=== PATIENT | female | born 1985 | race Two or more races ===

== ENCOUNTER 2024-06-09 16:54 | Emergency (ER) | payer SELFPAY ==
[2024-06-09 16:56] VITALS: BMI 24.7
[2024-06-09 17:03] VITALS: BP 111/72; PULSE 72; RESP 16; TEMP 36.7; O2SAT 100
--- NOTE | 2024-06-09 17:12 | XR_ITS ---
Examination: Shoulder,right, 3 views Technique: Shoulder AP internal rotation, AP external rotation, Y view shoulder, 3 views Exam date and time :June 09, 2024 at 1745 hrs. Indications: Injury to the shoulder today, shoulder pain Findings: Acute comminuted fractures of the scapula, the largest fracture component below the bony glenoid fossa Humerus clavicle appear intact Impression: Acute comminuted fractures of the body of the scapula without major displacement
--- NOTE | 2024-06-09 17:12 | PD.EDRME ---
Rapid Medical Screening Exam RME Arrival date/time: 06/09/24 16:54 Chief Complaint: Extremity Injury, Upper Time Seen by Provider: 06/09/24 16:59 Vital signs: Vital Signs Temperature 98.1 F 06/09/24 17:03 Pulse Rate 72 06/09/24 17:03 Respiratory Rate 16 06/09/24 17:03 Blood Pressure 111/72 06/09/24 17:03 Pulse Oximetry (%) 100 06/09/24 17:03 Oxygen Delivery Method Room Air 06/09/24 17:03 RME Narrative: Right shoulder pain from trip and fall this afternoon. 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
[2024-06-09] MEDS: HYDROcodone/APAP 7.5/325 TABLET 1 TAB PO (17:26)
[2024-06-09] MEDS: IBUPROFEN TAB 600 MG TABLET PO (17:26)
--- NOTE | 2024-06-09 20:10 | EDNOTE_ITS ---
<Statement entered by Kitty Ferro MD - 06/20/24 17:37> As co-signing physician, I was present and available for consult prn. I concur with the plan and care as documented by the midlevel provider. Upper Extremity Injury RME/HPI General Chief Complaint: Extremity Injury, Upper Stated Complaint: INJURY TO LEFT SHOULDER S/P TRIP/FALL Time Seen by Provider: 06/09/24 16:59 Source: patient Arrival date/time: 06/09/24 16:54 38-year-old female presents emergency department complaining of right shoulder pain after accidental fall with no LOC that occurred today. Mode of arrival: ambulatory Limitations: physical limitation RME / HPI RME / HPI narrative: Right shoulder pain from trip and fall this afternoon. 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 Related Data Previous Rx's ?Medication ?Instructions ?Recorded ibuprofen 600 mg tablet 600 mg PO Q8H PRN pain #20 tabs 06/09/24 Allergies Allergy/AdvReac Type Severity Reaction Status Date / Time No Known Allergies Allergy Verified 06/09/24 16:58 Review of Systems Review of Systems Systems Reviewed: All systems reviewed, normal except as documented Constitutional Constitutional: Reports system reviewed and no additional complaints, except as documented, Denies body ache(s), Denies chills and Denies fever(s) Eyes Eyes: Reports system reviewed and no additional complaints, except as documented and Denies change in vision ENT Ears, Nose, Mouth, and Throat: Reports system reviewed and no additional complaints, except as documented, Denies disequilibrium, Denies dizziness, Denies sore throat and Denies vertigo Cardiovascular Cardiovascular: Reports system reviewed and no additional complaints, except as documented, Denies chest pain and Denies dyspnea Respiratory Respiratory: Reports system reviewed and no additional complaints, except as documented, Denies chest congestion, Denies cough and Denies dyspnea Gastrointestinal Gastrointestinal: Reports system reviewed and no additional complaints, except as documented, Denies abdominal pain, Denies nausea and Denies vomiting Musculoskeletal Musculoskeletal: Reports system reviewed and no additional complaints, except as documented, Denies abnormal gait and Reports arthralgias Integumentary/Breasts Skin/Breast: Reports system reviewed and no additional complaints, except as documented, Denies erythema, Denies rash and Denies wounds Neurologic Neurologic: Reports system reviewed and no additional complaints, except as documented, Denies abnormal gait, Denies disequilibrium, Denies dizziness and Denies vertigo Past Medical History Social History SMOKING STATUS: Never smoker ED Exam General Limitations: Present physical limitation General appearance: Present alert and in no apparent distress Head Head exam: Present atraumatic Eye Eye exam: Present normal appearance, PERRL and EOMI ENT ENT exam: Present normal exam, normal oropharynx and mucous membranes moist Neck Neck exam: Present normal inspection, full ROM and trachea midline Chest Chest inspection: Present normal inspection and symmetric chest wall rise Respiratory Respiratory exam: Present normal lung sounds bilaterally Cardiovascular Cardiovascular exam: Present regular rate, normal rhythm and normal heart sounds Abdominal Exam Abdominal exam: Present soft and normal bowel sounds Extremities Exam Extremities exam: Present normal inspection and full ROM Expanded Upper Extremity Exam Shoulder exam: Present full ROM (Limited active range of motion right shoulder) and tenderness (Right shoulder) Vascular exam: Normal capillary refill Back Exam Back exam: Present normal inspection and full ROM Neurological Exam Neurological exam: Present alert, oriented X3 and CN II-XII intact Psychiatric Psychiatric exam: Present normal affect and normal mood Skin Skin exam: Present warm, dry, intact and normal color Course Quality Measures none Orders Category Date Time Status sling [Splint / Immobilizer] STAT Care 06/09/24 20:04 Completed XR shoulder RT min 2V Stat Exams 06/09/24 17:12 Completed HYDROcodone*/APAP 7.5/325 [[place] 7.5/325] Med 06/09/24 17:12 Discontinued 1 tab PO X1 ONE Ibuprofen Tab [Motrin Tab] Med 06/09/24 17:12 Discontinued 600 mg PO X1 ONE Ketorolac Inj [Toradol Inj] Med 06/09/24 20:18 Discontinued 30 mg IM X1 ONE Vital Signs Vital signs: Vital Signs Temperature 98.1 F 06/09/24 17:03 Pulse Rate 72 06/09/24 17:03 Respiratory Rate 16 06/09/24 17:03 Blood Pressure 111/72 06/09/24 17:03 Pulse Oximetry (%) 100 06/09/24 17:03 Oxygen Delivery Method Room Air 06/09/24 17:03 100% room air within normal limits Procedures -ED Splint Fabrication: Pre-Fabricated Type: Other (Sling) Reason for Splint: Optimal Positioning and Pain Management Circulation Distal to Splint: Yes Movement Distal to Splint: Yes Senation Distal to Splint: Yes Tolerance: Tolerates Well Extremity Injury MDM Narrative MDM Narrative:: 38-year-old female presents emergency department complaining of right shoulder pain after accidental fall with no LOC that occurred today. X-rays right shoulder findings: Acute comminuted fractures of the body of the scapula without major displacement. Patient does have limited active range of motion to right shoulder and is neurovascularly intact. Dr Pop consulted and recommended sling and follow-up with primary care provider and request referral to see risk management specialist. Patient placed in sling tolerated well prescribed pain medication and instructed to follow-up with primary care provider and request referral to risk management specialist and return to emergency department for any worsening symptoms or as needed. Patient data External records reviewed:: [facility] previous records Clinical information provided by:: patient and family Social determinants that could affect healthcare access:: none Patient has the following chronic illnesses:: None How is presenting disease/condition affected by chronic disease/condition?: no chronic disease Evaluation data The following diagnostics were reviewed and interpreted by me:: radiology exam(s) Lab and/or radiology exams considered but not ordered:: Ordered Interpretation Summary: Interpreted by me Medications / Prescriptions Medications or Prescriptions considered but not ordered:: Ordered Medication administrations:: Medication Administration History Discontinued Medications Hydrocodone Bitart/Acetaminophen (Hydrocodone/Apap 7.5/325 Tablet) 1 tab PO X1 ONE Stop: 06/09/24 17:13 Last Admin: 06/09/24 17:26 Dose: 1 tab Documented By: Ibuprofen (Ibuprofen Tab 600 Mg Tablet) 600 mg PO X1 ONE Stop: 06/09/24 17:13 Last Admin: 06/09/24 17:26 Dose: 600 mg Documented By: Ketorolac Tromethamine (Ketorolac Inj 60 Mg/2 Ml Vial) 30 mg IM X1 ONE Stop: 06/09/24 20:19 Last Admin: 06/09/24 20:27 Dose: 30 mg Documented By: Given Consultations Consultation(s) initiated? (list below): No Diagnosis Upper Extremity Injury Differential Diagnosis: dislocation of shoulder and fracture of clavicle Most likely diagnosis given after review of the tests above:: Scapula fracture Admission Indicated Admission indicated?: not indicated Admission Request Was there a request for admission?: No Disposition Plan Disposition Plan: Discharge Discharge Attestation Discharge Attestation: The patient and all family members were given an opportunity to ask questions and understood the discharge instructions. Discharge instructions specifically effects, indications for sooner follow up or return to the emergency department, and the expected course of current diagnosis. Patient condition: Stable Discharge Plan Plan Patient Disposition: HOME (Self Care) Disposition Comment: Stable Prescriptions/Referrals Prescriptions/Med Rec: New ibuprofen 600 mg tablet 600 mg PO Q8H PRN (Reason: pain) Qty: 20 0RF Referrals: No Primary/Family,Physician [Primary Care Provider] - In 1 week Problem List Clinical Impression: Fracture of scapula Patient/Caregiver Discharge Instructions Education Materials: ED Fracture, Shoulder Additional Instructions: Take medication as needed for pain. Sling has been provided. Follow-up with primary care provider and request referral to risk management specialist. Return to emergency department for any worsening symptoms or as needed. Print Language: Kinyarwanda Stand Alone Forms: Jackelyn Award Info., Patient Portal Info Letter PA/[employer]TELLIGENCE [employer]PER[employer] Supervising Physician PA/[employer]PER[employer] Supervising Physician: Dr. Ferro
[2024-06-09] MEDS: KETOROLAC INJ 60 MG/2 ML VIAL 30 MG IM (20:27)
== END 2024-06-09 20:34 | disposition home or self-care (01) ==
PROVIDERS: Emergency Provider Emergency Medicine
DX: S42.114A Nondisplaced fracture of body of scapula, right shoulder, initial encounter for closed fracture (principal); W01.0XXA Fall on same level from slipping, tripping and stumbling without subsequent striking against object, initial encounter
CPT/HCPCS: 73030; 96372; 99283; A4565; J1885; A9270

== ENCOUNTER → 2024-07-05 | Outpatient (CLI) | payer SELFPAY ==
--- NOTE | 2024-07-05 17:00 | XR_ITS ---
Examination: CT right shoulder, without contrast. 2-D sagittal reconstructions. 2-D coronal reconstructions. 3-D reconstructions. Date and time of exam:July 05, 2024 1731 hrs. Indications: Patient fell June 09, 2024 with injury to the right shoulder, fracture scapula CTDI: vol (mGy):15.5 DLP: (mGycm):356 Technique: Multiple 1.25 mm axial sections of the right shoulder have been obtained. 2-D sagittal and coronal reconstructions have been obtained. 3-D reconstructions have been obtained. Low dose protocols were performed. One or more of the following dose reduction techniques were used; automated exposure control, adjustment of the mA and/or KV according to patient size, use of iterative reconstruction technique. Findings: Acute fractures body and spine of the right scapula with mild offset No disruption of the bony glenoid fossa of the scapula Head is intact with no humeral head dislocation Clavicle intact No acute rib fractures The patient's right breast implant appears intact Impression: Acute fractures of body of the scapula, comminuted, without significant displacement Bony glenoid fossa of the scapula, humeral head and neck and clavicle appear intact No shoulder dislocation
[2024-07-05 17:30] LABS: HCG Qualitative,Urine Negative
== END | disposition home or self-care (01) ==
PROVIDERS: Referring Provider Nurse Practitioner Family; Visit Provider Nurse Practitioner Family
DX: S42.111A Displaced fracture of body of scapula, right shoulder, initial encounter for closed fracture (principal); W19.XXXA Unspecified fall, initial encounter; M25.811 Other specified joint disorders, right shoulder; Z32.00 Encounter for pregnancy test, result unknown
CPT/HCPCS: 73200; 81025

== ENCOUNTER 2024-08-23 10:30 | Outpatient (RCR) | payer SELFPAY ==
--- NOTE | 2024-07-31 09:12 | PTNOTE_ITS ---
PT OP Initial Eval Patient Information Outpatient Physical Therapy Treatment Date: 07/31/24 Visit Reasons: Fracture of Right body Medical Diagnosis: S42.111A Treatment Dx #1: R shoulder pain Treatment Dx #2: Dec R shoulder ROM Start of Care: 07/31/24 Date of Onset: 06/09/24 Smoking Status Smoking Status: Never smoker Initial Assessment Subjective: Pt is 38 yr old greenlandic speaking female s/p fall and closed R scapula FX in May. She feels the shoulder is loose, unstable and she has pain lifting the UE and is unable to reach OH. This limits HH chores, reaching, and lifting. She points to the anterior shoulder as site of pain. PMH: none reported Imaging: CT in EMR Pt goal: to reach up and have strength without pain of R shoulder Objective: R shoulder AROM: PROM: ? FF: 55 deg 110 deg ? Abd: 45 deg 100 deg ? ER: 65 deg ? HBB: to R glute with pain ? Strength: 3-/5 in all planes ? PROM: end-range pain with myofascial tightness Assessment: Pt presents with decreased R shoulder AROM and strength consistent with R scapula FX and decreased RC activation. Pt requires skilled therapy to meet goals and has fair rehab potential depending on if she injured the RC. Short Term and Retirement Goals 1. Ind with HEP ? 2. Improved AROM of R shoulder to at least 135 deg FF, 125 deg abduction and 90 deg ? ER ? 3. Improved HBB ROM to L3 ? 4. Pt will reach OH x10 with <=4/10 pain Treatment Plan 1. Manual therapy ? 2. Therex ?3. Modalities as indicated, moist heat pack, ice, electrical stimulation Frequency and Duration: 2x a week for 12 weeks Certification Dates: 07/31/24 to 11/27/24 Procedure Charges OP PT Eval Mod Complex 30 minutes: Yes
--- NOTE | 2024-08-06 13:30 | PTNOTE_ITS ---
PT Outpatient Daily Note OP Daily Note Outpatient Physical Therapy Treatment Date: 08/06/24 Visit Reasons: Fracture of Right body Subjective: Doing HEP with octavio and [place] ball Objective: See f/S for therex Assessment: Much improved AAROM of R shoulder into FF and abduction today with pain limiting end-range Plan: Continue per POC Length of Time (minutes) of Treatment: 30 Minutes Procedure Charges Therapeutic Exercise 30 minutes: Yes
--- NOTE | 2024-08-08 11:58 | PT.ODAYNRPT ---
PT Outpatient Daily Note OP Daily Note Outpatient Physical Therapy Treatment Date: 08/08/24 Visit Reasons: Fracture of Right body Subjective: Doing HEP with better ROM of R shoulder Objective: See f/S for therex P x5' Assessment: Much improved AAROM of R shoulder into FF and abduction today with pain limiting end-range and pt can put hand behind head. Plan: Continue per POC Length of Time (minutes) of Treatment: 30 Minutes Procedure Charges Therapeutic Exercise 30 minutes: Yes
--- NOTE | 2024-08-14 10:12 | PT.ODAYNRPT ---
PT Outpatient Daily Note OP Daily Note Outpatient Physical Therapy Treatment Date: 08/14/24 Visit Reasons: Fracture of Right body Subjective: Doing HEP with better ROM of R shoulder Objective: See f/S for therex MT: PROM into FF, abd and ER x5' Assessment: Much improved AAROM of R shoulder into FF and abduction today with pain limiting end-range and pt can put hand behind head. Plan: Continue per POC Length of Time (minutes) of Treatment: 30 Minutes Procedure Charges Therapeutic Exercise 30 minutes: Yes
--- NOTE | 2024-08-21 10:49 | PT.ODAYNRPT ---
PT Outpatient Daily Note OP Daily Note Outpatient Physical Therapy Treatment Date: 08/21/24 Visit Reasons: Fracture of Right body Subjective: No new complaints or concerns to report. Objective: Please see flow sheet for ther ex list. Assessment: Interventions completed with minimal pain, interventions given alternating sitting and standing. Plan: Continue with POc. Length of Time (minutes) of Treatment: 30 Minutes Procedure Charges Therapeutic Exercise 30 minutes: Yes
--- NOTE | 2024-08-21 16:27 | PT.ODAYNRPT ---
PT Outpatient Daily Note OP Daily Note Outpatient Physical Therapy Treatment Date: 08/21/24 Visit Reasons: Fracture of Right body Subjective: Doing HEP with better ROM of R shoulder Objective: See f/S for therex MT: PROM into FF, abd and ER x3' Assessment: Much improved AAROM of R shoulder into FF and abduction today with pain limiting end-range and pt can put hand behind head. Plan: Continue per POC Length of Time (minutes) of Treatment: 30 Minutes Procedure Charges Therapeutic Exercise 30 minutes: Yes
--- NOTE | 2024-08-23 11:21 | PT.ODAYNRPT ---
PT Outpatient Daily Note OP Daily Note Outpatient Physical Therapy Treatment Date: 08/23/24 Visit Reasons: Fracture of Right body Subjective: Pt reports shoulder is stiff but overall making progress. Objective: Please see flow sheet for ther ex list. Assessment: Pt instructed on ER door stretch exercise, pt able to replicate with good technique and encouraged to perform within tolerable range. Plan: Continue with pOC. Length of Time (minutes) of Treatment: 30 Minutes Procedure Charges Therapeutic Exercise 30 minutes: Yes
== END 2024-08-24 23:59 | disposition home or self-care (01) ==
LOC: CPTX 10:30
PROVIDERS: PCP Orthopaedic Surgery; Referring Provider Orthopaedic Surgery; Visit Provider Orthopaedic Surgery
DX: M25.511 Pain in right shoulder (principal); S42.111D Displaced fracture of body of scapula, right shoulder, subsequent encounter for fracture with routine healing; W19.XXXD Unspecified fall, subsequent encounter
CPT/HCPCS: 97110; 97162

== ENCOUNTER 2024-08-30 09:30 | Outpatient (RCR) | payer SELFPAY ==
--- NOTE | 2024-08-27 11:41 | PTNOTE_ITS ---
PT Outpatient Daily Note OP Daily Note Outpatient Physical Therapy Treatment Date: 08/27/24 Visit Reasons: fracture right side Subjective: Doing HEP with better ROM of R shoulder but it's still stiff Objective: See f/S for therex MT: PROM into FF, abd and ER x5' Assessment: Improved PROM of R shoulder into FF and abduction today with pain limiting end- range and pt can put hand behind head. Plan: Continue per POC Length of Time (minutes) of Treatment: 30 Minutes Procedure Charges Therapeutic Exercise 30 minutes: Yes
--- NOTE | 2024-08-30 11:03 | PT.ODAYNRPT ---
PT Outpatient Daily Note OP Daily Note Outpatient Physical Therapy Treatment Date: 08/30/24 Visit Reasons: fracture right side Subjective: Doing HEP with better ROM of R shoulder but it's still stiff Objective: See f/S for therex MT: PROM into FF, abd and ER x5' with overpressure Assessment: ROM of R shoulder limited in capsular pattern with pain limiting end-range consistent with adhesive capsulitis. Plan: Continue per POC Length of Time (minutes) of Treatment: 30 Minutes Procedure Charges Therapeutic Exercise 30 minutes: Yes
== END 2024-09-24 23:59 | disposition home or self-care (01) ==
LOC: CPTX 09:30
PROVIDERS: PCP Orthopaedic Surgery; Referring Provider Orthopaedic Surgery; Visit Provider Orthopaedic Surgery
DX: M25.511 Pain in right shoulder (principal); S42.111D Displaced fracture of body of scapula, right shoulder, subsequent encounter for fracture with routine healing; W19.XXXD Unspecified fall, subsequent encounter
CPT/HCPCS: 97110